=== PATIENT | male | born 1975 ===

== ENCOUNTER 2017-01-14 11:21 | Emergency (ER) | payer OTHER ==
[2017-01-14 11:32] VITALS: BMI 25.7
[2017-01-14] MEDS ORDERED: Sodium Chloride 0.9% 1,000 ML IV ONE (11:56)
[2017-01-14] MEDS ORDERED: Aspirin 325 mg EC Tablets PO STA (11:56)
[2017-01-14] MEDS ORDERED: Sodium Chloride 0.9% 1,000 ML ONE (12:05)
[2017-01-14] MEDS ORDERED: Aspirin 325 mg EC Tablets PO ONE (12:05)
--- NOTE | 2017-01-14 12:12 | RAD ---
HISTORY: chest pain COMPARISON: None available. TECHNIQUE: Chest PA and lateral FINDINGS: LUNGS: No focal consolidation. Please note that chest x-ray has limited sensitivity for the detection of pulmonary masses. PLEURA: No significant pleural effusion identified. No definite pneumothorax . CARDIOVASCULAR: The cardiomediastinal silhouette appears within normal limits of size. OSSEOUS STRUCTURES: No acute osseous abnormality identified. VISUALIZED UPPER ABDOMEN: Unremarkable. OTHER FINDINGS: None. IMPRESSION: No focal consolidation, significant pleural effusion, or definite pneumothorax identified.
[2017-01-14 12:14] LABS: BASO # 0.1 K/uL (0.0-0.2); EOS # 0.2 K/uL (0.0-0.7); EOS % 3.4 % (0.0-4.0); HEMATOCRIT 47.3 % (35.0-51.0); LYMPH % 34.8 % (20.0-40.0); MEAN CELL VOLUME 90.3 fL (80.0-94.0); MEAN CORPUSCULAR HEMOGLOBIN 29.9 pg (27.0-31.0); MEAN CORPUSCULAR HGB CONC 33.1 g/dL (33.0-37.0); MEAN PLATELET VOLUME 8.4 fL (7.2-11.7); MONO # 0.5 K/uL (0.0-0.8); MONO % 8.3 % (0.0-10.0); NRBC % 0.1 % (0.0-2.0); RED CELL DISTRIBUTION WIDTH 14.3 % (11.5-14.5); WHITE BLOOD COUNT 5.8 K/uL (4.8-10.8)
[2017-01-14 12:20] LABS: INR 1.2
[2017-01-14 12:23] LABS: CHLORIDE 103 mmol/L (98-107); SODIUM 138 mmol/L (132-148)
[2017-01-14 12:25] LABS: CHOLESTEROL 174 mg/dL (0-199); GFR AFRICAN-AMERICAN > 60
[2017-01-14 12:26] LABS: ALB/GLOB RATIO 1.4 (1.0-2.1); ALKALINE PHOSPHATASE 80 U/L (38-126); ALT/SGPT 40 U/L (21-72); AST/SGOT 39 U/L (17-59); BILIRUBIN,TOTAL 0.9 mg/dL (0.2-1.3); BLOOD UREA NITROGEN 15 mg/dL (9-20); CARBON DIOXIDE 26 mmol/L (22-30); GLUCOSE,RANDOM 105 mg/dL (75-110); TOTAL PROTEIN 6.9 g/dL (6.3-8.3)
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
[2017-01-14 12:34] LABS: RBC URINE < 1 /hpf (0-3); URINE BILIRUBIN NEGATIVE (NEGATIVE); URINE BLOOD NEGATIVE (NEGATIVE); URINE COLOR Yellow (YELLOW); URINE GLUCOSE (UA) NORMAL (Normal); URINE KETONE NEGATIVE (NEGATIVE); URINE LEUKOCYTE ESTERASE NEG Leu/uL (Negative); URINE PROTEIN NEGATIVE (NEGATIVE); URINE UROBILINOGEN NORMAL mg/dL (0.2-1.0); WBC URINE < 1 /hpf (0-5)
[2017-01-14 13:14] VITALS: O2SAT 100
[2017-01-14 13:41] VITALS: BP 120/79; PULSE 56; RESP 18; TEMP 97.9
--- NOTE | 2017-01-18 11:48 | CARD ---
APPROVED REPORT EKG Measurement Heart [id number] <Conclusion> Sinus bradycardia with 1st degree AV block Possible Left atrial enlargement Nonspecific ST and T wave abnormality Abnormal ECG
== END 2017-01-14 14:00 | disposition home or self-care (01) ==
LOC: C.ER 11:21
DX: R07.89 Other chest pain (principal)
CPT/HCPCS: 71020; 80053; 80061; 81001; 83880; 84484; 85025; 85610; 85730; 96360; 99285; J7040

== ENCOUNTER 2018-04-17 16:07 | Emergency (ER) | payer SELFPAY ==
[2018-04-17 16:08] VITALS: BMI 25.7
[2018-04-17] MEDS ORDERED: Sodium Chloride 0.9% 1,000 ML IV ONE (16:46)
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
[2018-04-17] MEDS ORDERED: Sodium Chloride 0.9% 1,000 ML ONE (17:02)
[2018-04-17 17:08] LABS: BASO % 0.5 % (0.0-2.0); EOS # 0.2 K/uL (0.0-0.7); EOS % 1.9 % (0.0-4.0); HEMOGLOBIN 14.8 g/dL (12.0-18.0); LYMPH # 1.3 K/uL (1.0-4.3); LYMPH % 16.6 % (20.0-40.0); MEAN CELL VOLUME 91.7 fL (80.0-94.0); MEAN CORPUSCULAR HEMOGLOBIN 31.2 pg (27.0-31.0); MEAN CORPUSCULAR HGB CONC 34.1 g/dL (33.0-37.0); MEAN PLATELET VOLUME 8.1 fL (7.2-11.7); MONO # 0.5 K/uL (0.0-0.8); MONO % 6.6 % (0.0-10.0); NEUT # 5.9 K/uL (1.8-7.0); NEUT % 74.4 % (50.0-75.0); RBC 4.73 Mil/uL (4.40-5.90); RED CELL DISTRIBUTION WIDTH 13.8 % (11.5-14.5)
[2018-04-17 17:14] LABS: INR 1.4; PROTHROMBIN TIME 15.1 SECONDS (9.7-12.2)
--- NOTE | 2018-04-17 17:18 | RAD ---
Date of service: 04/17/2018 PROCEDURE: CHEST RADIOGRAPH, 1 VIEW HISTORY: SOB COMPARISON: Comparison chest 01/14/2017. FINDINGS: LUNGS: Mild bibasilar atelectasis and or developing infiltrates. PLEURA: No pneumothorax or pleural fluid seen. CARDIOVASCULAR: Cardiomegaly. OSSEOUS STRUCTURES: No significant abnormalities. VISUALIZED UPPER ABDOMEN: Normal. OTHER FINDINGS: None. IMPRESSION: Mild bibasilar atelectasis and or developing infiltrates. Cardiomegaly.
[2018-04-17 17:19] LABS: ALB/GLOB RATIO 1.5 (1.0-2.1); ALT/SGPT 59 U/L (21-72); AST/SGOT 47 U/L (17-59); BLOOD UREA NITROGEN 17 mg/dL (9-20); GFR NON-AFRICAN AMERICAN > 60
[2018-04-17 17:30] LABS: B-TYPE NATRIURETIC PEPTIDE 1630 pg/mL (0-450)
[2018-04-17] MEDS ORDERED: Iodixanol 320 mg/ml 150 ml Bottle IV ONE (19:02)
[2018-04-17 19:48] VITALS: RESP 20
[2018-04-17 21:00] VITALS: BP 118/80; PULSE 82; TEMP 98.3; O2SAT 100
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
== END 2018-04-17 20:45 | disposition home or self-care (01) ==
LOC: C.ER 16:07
DX: S20.211A Contusion of right front wall of thorax, initial encounter (principal); V19.40XA Pedal cycle driver injured in collision with unspecified motor vehicles in traffic accident, initial encounter; Y93.55 Activity, bike riding
CPT/HCPCS: 70450; 71045; 71260; 74177; 80053; 83880; 84484; 85025; 85610; 85730; 93005; 96361; 96374; 99285; J1885; J7030; Q9967

== ENCOUNTER 2018-04-19 23:52 | Emergency (ER) | payer SELFPAY ==
[2018-04-19 23:53] VITALS: BMI 25.7
[2018-04-20 00:06] VITALS: RESP 16
[2018-04-20] MEDS ORDERED: DiphenhydrAMINE 50 mg/ml Inj ONE (00:28)
[2018-04-20] MEDS ORDERED: MethylPREDNISolone 40 mg Vial IVP STA (00:34)
[2018-04-20] MEDS ORDERED: DiphenhydrAMINE 50 mg/ml Inj IVP STA (00:34)
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
[2018-04-20 02:01] VITALS: BP 125/70; PULSE 90; TEMP 97.8; O2SAT 98
== END 2018-04-20 01:28 | disposition home or self-care (01) ==
LOC: C.ER 23:52
DX: L50.9 Urticaria, unspecified (principal)
CPT/HCPCS: 96374; 96375; 99284; J1200; J2920